=== PATIENT | male | born 1960 | race Caucasian/White ===

== ENCOUNTER 2019-12-30 08:49 | Outpatient (REF) | payer BC, SELFPAY ==
--- NOTE | 2019-12-30 08:57 | XR_ITS ---
EXAMINATION: XR KNEE, RIGHT CLINICAL INFORMATION: Right knee pain COMPARISON: None TECHNIQUE: Four views of the right knee. FINDINGS: The right knee joint spaces are maintained. There is a right knee effusion. There is spurring undersurface of the patella. There is a bipartite patella present. A few calcific densities are seen about the posterior medial aspect of the right knee which may lie within popliteal fossa cyst. IMPRESSION: Right knee effusion. Question popliteal fossa cyst calcifications. Mild degenerative change patellofemoral joint.
== END 2019-12-30 08:50 | disposition home or self-care (01) ==
LOC: HO.HMGCX 08:49
PROVIDERS: Visit Provider Nurse Practitioner Family
DX: M25.561 Pain in right knee (principal)
CPT/HCPCS: 73564

== ENCOUNTER 2022-02-24 11:06 | Outpatient (REF) | payer BC, SELFPAY ==
--- NOTE | ~2022-02-24 | XR_ITS ---
EXAMINATION: XR CHEST CLINICAL INFORMATION: Cough. COMPARISON: None TECHNIQUE: 2 views of the chest were obtained. FINDINGS: The lungs are clear. The cardiomediastinal silhouette is normal in size. There is no pleural effusion or pneumothorax. No acute osseous abnormality. XR/XR chest 2V IMPRESSION: No acute cardiopulmonary findings.
[2022-02-24 11:15] LABS: Binax Internal Control QC Valid; Binax Now Covid-19 Ag Positive (Negative)
[2022-02-24 15:03] LABS: Influenza A PCR NEGATIVE (Negative); Influenza B PCR NEGATIVE (Negative); Resp Syncy Virus RNA Qual PCR NEGATIVE (Negative); SARS COV2 PCR INHOUSE POSITIVE (Negative)
== END 2022-02-24 11:07 | disposition home or self-care (01) ==
LOC: HO.HMGCX 11:06
PROVIDERS: Visit Provider Physician Assistant Medical
DX: Z20.822 Contact with and (suspected) exposure to COVID-19 (principal); R05.9 Cough, unspecified
CPT/HCPCS: 0241U; 71046; 87811; C9803